=== PATIENT | female | born 1965 | race Two or more races ===

== ENCOUNTER 2021-02-03 06:03 | Day surgery (SDC) | payer OTHER | END 2021-02-03 13:55 | disposition home or self-care (01) | LOC: CIR.AMB 06:03 → ADM 09:00 → CIR.AMB 13:55 | PROVIDERS: ATTEND Orthopaedic Surgery Hand Surgery | DX: M25.542 Pain in joints of left hand (principal); Z20.822 Contact with and (suspected) exposure to COVID-19 ==